=== PATIENT | male | born 1950 | race Caucasian/White ===

== ENCOUNTER 2018-01-09 01:59 | Observation (INO) | payer OTHER ==
[2018-01-09] MEDS: ASPIRIN CHEWABLE 81 MG TABLET. PO (02:31)
[2018-01-09 03:23] LABS: ADD MAN DIFF? NO
[2018-01-09 03:27] LABS: BASO # 0.1 x10^3/uL (0.0-0.2); BASO % 1 % (0-3); EOS # 0.4 x10^3/uL (0.0-0.7); EOS % 5 % (0-3); HEMATOCRIT 44.2 % (39.0-53.0); HEMOGLOBIN 15.3 g/dL (13.0-17.5); LYMPH # 2.6 x10^3/uL (1.0-4.8); LYMPH % 39 % (24-48); MEAN CORPUSCULAR HEMOGLOBIN 30 pg (25-35); MEAN CORPUSCULAR HGB CONC 35 g/dL (31-37); MEAN CORPUSCULAR VOLUME 87 fL (79-100); MONO # 0.4 x10^3/uL (0.0-1.1); MONO % 6 % (0-9); NEUT # 3.3 x10^3uL (1.8-7.7); NEUT % 49 % (31-73); PLATELET COUNT 207 x10^3/uL (140-400); RED CELL DISTRIBUTION WIDTH 13.5 % (11.5-14.5); WHITE BLOOD COUNT 6.8 x10^3/uL (4.0-11.0)
[2018-01-09 03:32] LABS: ANION GAP 9 (6-14); BLOOD UREA NITROGEN 24 mg/dL (8-26); BUN/CREATININE RATIO 17 (6-20); CALCIUM 8.1 mg/dL (8.5-10.1); CARBON DIOXIDE 24 mmol/L (21-32); CHLORIDE 107 mmol/L (98-107); CREATININE 1.4 mg/dL (0.7-1.3); GFR 50.9; GLUCOSE 96 mg/dL (70-99); POTASSIUM 3.6 mmol/L (3.5-5.1); SODIUM 140 mmol/L (136-145)
[2018-01-09 03:38] LABS: ALBUMIN 3.4 g/dL (3.4-5.0); ALK PHOS 95 U/L (46-116); ALT (SGPT) 26 U/L (16-63); AST (SGOT) 18 U/L (15-37); LIPASE 281 U/L (73-393); TOTAL BILIRUBIN 0.5 mg/dL (0.2-1.0); TOTAL PROTEIN 6.9 g/dL (6.4-8.2)
[2018-01-09 03:39] LABS: D-DIMER 1.17 ug/mlFEU (0.00-0.50)
[2018-01-09 03:41] LABS: TROPONINI < 0.017 ng/mL (0.000-0.055)
[2018-01-09] MEDS ORDERED: CONTRAST GIVEN. MC (04:00)
[2018-01-09] MEDS ORDERED: NITROGLYCERIN SUBLINGUAL 0.4 MG BOTTLE OF 25. SL (04:00)
[2018-01-09] MEDS: IOHEXOL 300 MG/ML 100ML VIAL. IV (04:06)
[2018-01-09] MEDS: IV NORMAL SALINE 1000ML BAG 1,000 ML IV (05:02)
[2018-01-09] MEDS: amLODIPine BESYLATE 5 MG TABLET PO (05:14)
[2018-01-09] MEDS: NITROGLYCERIN OINT 1 GM PACKET. TP (05:14)
[2018-01-09] MEDS ORDERED: LABETALOL 20 MG/4 ML DISP.SYRIN. IVP (07:45)
[2018-01-09 07:47] LABS: TROPONINI < 0.017 ng/mL (0.000-0.055)
[2018-01-09] MEDS: hydroCHLOROthiazide 25 MG TABLET PO (08:08)
[2018-01-09] MEDS: LISINOPRIL 10 MG TABLET PO (08:09)
[2018-01-09 10:04] LABS: TROPONINI < 0.017 ng/mL (0.000-0.055)
[2018-01-09 10:31] LABS: CHOLESTEROL 307 mg/dL (0-200); HDLC 40 mg/dL (40-60); LDLC 232 mg/dL (0-100); NON-HDL CHOLESTEROL 267 mg/dL (0-129); TRIGLYCERIDES 174 mg/dL (0-150); VLDLC 35 mg/dL (0-40)
[2018-01-09 10:32] LABS: CHOLESTEROL/HDL RATIO 7.7
[2018-01-09] MEDS: ASPIRIN ENTERIC COATED 81 MG TABLET.DR. PO (11:14)
[2018-01-09] MEDS: FLUTICASONE 50MCG/NASAL SPRAY 16GM BOTTLE. NS (12:00)
[2018-01-09] MEDS ORDERED: PERFLUTREN PROTEIN-A MICROSPHR 0.22 MG/ML 3 ML VIAL. IV (14:10)
[2018-01-09] MEDS: PERFLUTREN PROTEIN-A MICROSPHR 0.22 MG/ML 3 ML VIAL. IV (16:09)
[2018-01-09] MEDS ORDERED: ATORVASTATIN CALCIUM 40 MG TABLET. PO (21:00)
== END 2018-01-09 18:15 | disposition home or self-care (01) ==
LOC: ER 01:59 → 5 SOUTH 03:00
DX: R07.89 Other chest pain (principal); J06.9 Acute upper respiratory infection, unspecified; N17.9 Acute kidney failure, unspecified; I10 Essential (primary) hypertension; E78.00 Pure hypercholesterolemia, unspecified; E78.5 Hyperlipidemia, unspecified; J42 Unspecified chronic bronchitis; K21.9 Gastro-esophageal reflux disease without esophagitis; R09.82 Postnasal drip; Z88.0 Allergy status to penicillin; Z87.891 Personal history of nicotine dependence; Z98.52 Vasectomy status; Z79.899 Other long term (current) drug therapy
CPT/HCPCS: 36415; 71045; 71275; 78452; 80053; 80061; 83690; 84484; 85025; 85379; 93005; 93017; 93306; 96360; 96374; 96376; 99285-25; A9500; C8929; G0378; G0379; J7030; Q9956; Q9967